=== PATIENT | male | born 1995 | race Hispanic/Latino ===

== ENCOUNTER 2018-11-25 19:34 | Emergency (ER) | payer BC ==
[2018-11-25 19:40] VITALS: BP 135/85; PULSE 98; RESP 20; TEMP 98.6; O2SAT 97
--- NOTE | 2018-11-25 20:29 | C.PDOC ---
History Of Present Illness 23 year old male presents to the ED for evaluation of left shoulder pain which began last night. Patient states his shoulder appeared dislocated last night and a family member, who is a physical therapist, "might have relocated it." Patient complains of persistant pain to his left shoulder on movement. He denies weakness/numbness. Time Seen by Provider: 11/25/18 19:47 Chief Complaint (Nursing): Upper Extremity Problem/Injury History Per: Patient History/Exam Limitations: no limitations Onset/Duration Of Symptoms: Hrs Current Symptoms Are (Timing): Still Present Quality: "Pain" Additional History Per: Patient Past Medical History Reviewed: Historical Data, Nursing Documentation, Vital Signs Vital Signs: Last Vital Signs Temp 98.6 F 11/25/18 19:37 Pulse 98 H 11/25/18 19:37 Resp 20 11/25/18 19:37 BP 135/85 11/25/18 19:37 Pulse Ox 97 11/25/18 19:37 - Medical History PMH: No Chronic Diseases Surgical History: No Surg Hx - [facility] Procedures CIRCUMCISION (97) CLOSURE SKIN & SUBCUTANEOUS NEC (06/30/05) Family History: States: Unknown Family Hx - Social History Hx Alcohol Use: Yes Hx Substance Use: No - Immunization History Hx Tetanus Toxoid Vaccination: No Hx Influenza Vaccination: No Hx Pneumococcal Vaccination: No Review Of Systems Musculoskeletal: Positive for: Shoulder Pain (left ) Neurological: Negative for: Weakness, Numbness Physical Exam - Physical Exam Appears: Non-toxic, No Acute Distress Skin: Normal Color, Warm, Dry Head: Atraumatic, Normacephalic Eye(s): bilateral: Normal Inspection, PERRL Extremity: Normal ROM (left shoulder ), No Tenderness, Capillary Refill (less than 2 seconds ), No Deformity, No Swelling Extremity: Bilateral: Atraumatic, Normal Color And Temperature Pulses: Left Radial: Normal Neurological/Psych: Oriented x3, Normal Cognition, Normal Motor, Normal Sensation Gait: Steady ED Course And Treatment O2 Sat by Pulse Oximetry: 97 (on RA) Pulse Ox Interpretation: Normal Progress Note: Left shoulder XR ordered and reviewed, shows no fracture or dislocation. Patient refused pain medication, was placed in sling. Advised Ortho f/u. On reassessment, patient is resting comfortably, showing no signs of distress and is stable for discharge. Patient advised to f/u with orthopedic care within 1-2 days for further evaluation. Disposition Counseled Patient/Family Regarding: Diagnosis, Need For Followup - Disposition Disposition: HOME/ ROUTINE Disposition Time: 20:31 Condition: STABLE Additional Instructions: Take NSAIDS for pain ( motrin, advil, ibuprofen) Use sling as needed for support Avoid any strenuous activities Return to ER if worse Instructions: Shoulder Pain (DC) Forms: [employer] (Slovak) - Clinical Impression Clinical Impression: Left shoulder pain - PA / DIRECTOR VOICE / Resident Statement MD/DO has reviewed & agrees with the documentation as recorded. - Scribe Statement The provider has reviewed the documentation as recorded by the Scribe (Gretchen Martinez) All medical record entries made by the Scribe were at my direction and personally dictated by me. I have reviewed the chart and agree that the record accurately reflects my personal performance of the history, physical exam, medical decision making, and the department course for this patient. I have also personally directed, reviewed, and agree with the discharge instructions and disposition.
--- NOTE | 2018-11-26 10:18 | RAD ---
PROCEDURE: Radiographs of the Left Shoulder HISTORY: pain, possible dislocation COMPARISON: None available. FINDINGS: BONES: No acute displaced fracture. The distal clavicle and underlying ribs appear intact. JOINTS: No acute dislocation. SOFT TISSUES: Soft tissues appear unremarkable. No evidence of radiopaque foreign body. IMPRESSION: No acute displaced fracture or dislocation evident. If symptoms persist or if there is continued clinical concern, x-ray follow-up in 7-10 days should be considered.
== END 2018-11-25 20:36 | disposition home or self-care (01) ==
LOC: C.ER 19:34
DX: M25.512 Pain in left shoulder (principal)